=== PATIENT | male | born 1960 | race Caucasian/White ===

== ENCOUNTER 2021-05-27 06:25 | Emergency (ER) | payer BC ==
[2021-05-27] MEDS ORDERED: Oxymetazoline 0.05% Nasal Spray 30 ML Bottle NAS ONE (06:34)
--- NOTE | 2021-05-27 06:34 | EDM.PDOC ---
<Aruna Bassett - Last Filed: 05/27/21 06:29> ED HPI GENERAL MEDICAL PROBLEM - General Stated Complaint: BLOODY NOSE Time Seen by Provider: 05/27/21 06:30 Source of Information: Reports: Patient, RN History Limitations: Reports: No Limitations - History of Present Illness INITIAL COMMENTS - FREE TEXT/NARRATIVE: Nosebleed x 1 hour, bleeding both sides, heavier on left. No prior episodes. Baby Aspirin daily. - Related Data Allergies Allergy/AdvReac Type Severity Reaction Status Date / Time No Known Allergies Allergy Verified 05/27/21 06:36 ED ROS ENT - Review of Systems Review Of Systems: Comprehensive ROS is negative, except as noted in HPI. ED EXAM, ENT - Physical Exam Exam: See Below Exam Limited By: No Limitations General Appearance: Alert, No Apparent Distress Eye Exam: Bilateral Eye: PERRL Ears: Normal External Exam, Hearing Grossly Normal Nose: Injected Turbinates (greater left), Other (bleeding left, scant.). No: No Blood Mouth/Throat: Normal Oropharynx Head: Atraumatic, Normocephalic Neck: Normal Inspection Respiratory/Chest: No Respiratory Distress, Lungs Clear, Normal Breath Sounds Cardiovascular: Normal Peripheral Pulses, Regular Rate, Rhythm Back: Normal Inspection, Full Range of Motion Extremities: Normal Inspection, Normal Range of Motion Neurological: Alert, Oriented, Normal Cognition Psychiatric: Normal Affect, Normal Mood Skin: Warm, Dry, Intact, Normal Color Departure - Departure Disposition: Home, Self-Care 01 Clinical Impression: Epistaxis - Discharge Information Instructions: Nosebleed, [id number] Forms: ED Department Discharge Additional Instructions: 1.) Present to any clinic in 48 hours for removal of nasal packing. 2.) You may apply Vaseline to nares to prevent dry mucous membranes. 3.) Sleep with a humidifier on at night. 4.) Follow up with primary care provider, or return to the emergency room, with return of nose bleed that does not stop. <Santa Stratton - Last Filed: 05/27/21 08:47> ED ENT PROCEDURES - Epistaxis Procedure Indication: Epistaxis Recent anticoagulants/antiplatlets: Yes Uncontrolled HTN: No Recent septal/nasal surgery: No Site of bleeding: Left Nare Clearing of clots: Patient Blew Nose Ice pack to area: Yes Anterior Packing: Inflatable Nasal Tampon Posterior packing: Long Inflatable Nasal Tampon Complications: No Course - Vital Signs Last Recorded V/S: Last Vital Signs Temp 98.0 F 05/27/21 06:33 Pulse 65 05/27/21 06:33 Resp 16 05/27/21 06:33 BP 157/83 H 05/27/21 06:33 Pulse Ox 98 05/27/21 06:33 - Orders/Labs/Meds Meds: Medications Discontinued Medications Generic Name Dose Route Start Last Admin Trade Name Joyce PRN Reason Stop Dose Admin Ondansetron HCl 4 mg 05/27/21 07:49 05/27/21 07:57 Ondansetron 4 Mg Tab.Dis PO 05/27/21 07:50 4 mg ONETIME ONE Administration Oxymetazoline HCl 1 ml 05/27/21 06:34 05/27/21 06:40 Oxymetazoline 0.05% Nasal [place] 30 Ml Bottle AMOS 05/27/21 06:35 1 ml ONETIME ONE Administration Tranexamic Acid 500 mg 05/27/21 07:30 05/27/21 07:44 Tranexamic Acid 1,000 Mg/10 Ml Amp TOP 05/27/21 07:31 500 mg ONETIME ONE Administration - Re-Assessments/Exams Free Text/Narrative Re-Assessment/Exam: 05/27/21 Patient continues to experience epistaxis despite two rounds of Afrin with Epi. Inflatable nasal tampon with TXA placed without complication. Patient given Zofran for nausea. Will send patient home with prescription for Zofran ODT. Red flag signs and symptoms which would warrant reevaluation reviewed. Patient verbalized understanding and agreement with the plan of care. Departure - Departure Time of Disposition: 07:45 Condition: Good - Discharge Information *PRESCRIPTION DRUG MONITORING PROGRAM REVIEWED*: Not Applicable *COPY OF PRESCRIPTION DRUG MONITORING REPORT IN PATIENT JUSTIN: Not Applicable Sepsis Event Note (ED) - Focused Exam Vital Signs: Vital Signs Temp Pulse Resp BP Pulse Ox 05/27/21 06:33 98.0 F 65 16 157/83 H 98
[2021-05-27] MEDS ORDERED: Ondansetron 4 MG Tab.DIS PO ONE (07:49)
== END 2021-05-27 08:00 | disposition home or self-care (01) ==
LOC: DL.ED 06:25
DX: R04.0 Epistaxis (principal)
CPT/HCPCS: 30903; 30905; 99283; 99283-25; A9270-GY